=== PATIENT | female | born 1960 | race Caucasian/White ===

== ENCOUNTER 2016-12-18 01:53 | Emergency (ER) | payer OTHER ==
--- NOTE | 2016-12-18 08:13 | RAD ---
LOWER LEG LEFT HISTORY: Proximal left lower leg pain. No known injury. COMPARISONS: None FINDINGS: AP and lateral views of the left tib-fib do not show fracture, dislocation, radiopaque foreign body or soft tissue deformity. Limited assessment of the knee and ankle are unremarkable. 7 mm heel spur is identified. Enthesophyte formation of the Achilles insertion on the calcaneus is also noted. IMPRESSION: No fracture or dislocation.
== END 2016-12-18 03:56 | disposition home or self-care (01) ==
LOC: ED 01:53
DX: M79.662 Pain in left lower leg (principal); J45.909 Unspecified asthma, uncomplicated; F17.210 Nicotine dependence, cigarettes, uncomplicated